=== PATIENT | male | born 1945 | race Caucasian/White ===

== ENCOUNTER 2021-02-01 17:09 | Emergency (ER) | payer OTHER, SELFPAY ==
--- NOTE | ~2021-02-01 | XR_ITS ---
EXAMINATION: XR HAND, RIGHT CLINICAL INFORMATION: Splinter to right palmar aspect COMPARISON: None TECHNIQUE: PA, lateral, and oblique views of the right hand. FINDINGS: There is normal alignment without acute fracture or dislocation. There is narrowing of the DIP and PIP joint spaces with associated hypertrophic change. There is narrowing of the radiocarpal and intercarpal joint spaces. There is narrowing, mild subluxation, and sclerosis at the first carpometacarpal joint and the first metacarpophalangeal joint. There is mild diffuse osteopenia. In the area as marked on the film, no radiopaque foreign body is visualized. The splinter as described in the clinical history a be too small for the resolution of the film. XR/XR hand RT 2V IMPRESSION: No acute bony abnormality of the right hand. Moderate osteoarthritis. No radiopaque foreign body is visualized.
[2021-02-01 17:31] VITALS: BP 155/64; PULSE 65; RESP 18; TEMP 36.3; O2SAT 99; BMI 31.3
--- NOTE | 2021-02-01 18:48 | ED_ITS ---
HPI - Extremity Problem General Chief complaint: Extremity Injury, Upper Stated complaint: splinter in palm of r hand Time Seen by Provider: 02/01/21 18:39 Source: patient Mode of arrival: ambulatory Limitations: no limitations History of Present Illness HPI Narrative: Patient diabetic had a pressure treated wood splinter in his right hand 3 days ago unable to remove all of it comes here now increased pain and swelling with redness going to the wrist no fever noted Related Data Previous Rx's Medication Instructions Recorded clindamycin HCl 300 mg capsule 300 mg PO QID #40 cap 02/01/21 mupirocin 2 % topical ointment 1 appl TOPICAL BID #15 g 02/01/21 Allergies Allergy/AdvReac Type Severity Reaction Status Date / Time Penicillins [PENICILLINS] Allergy Unknown UNKNOWN Verified 02/01/21 17:33 Review of Systems Review of Systems: Yes all other systems are reviewed and are negative [facility] Past Medical History Medical History Diabetes Hypertension Social History Social History Advance Directives: No Advance Directives Information Provided: Yes Physical Exam Vital Signs: Vital Signs: Last Vital Signs Temp 97.4 F 02/01/21 17:31 Pulse 65 02/01/21 17:31 Resp 18 02/01/21 17:31 BP 155/64 H 02/01/21 17:31 Pulse Ox 99 02/01/21 17:31 Body Mass Index 31.3 Extrem: Hand/finger images: 1. Transillumination positive for foreign body with surrounding erythema Procedures Foreign Body Removal Time Out Performed: yes Site: right and hand Description of foreign body: other (wood splinter) Technique: removal with forceps Confirmed by:: direct visualization Complications: none Discharge Plan Discharge Clinical Impression: Splinter Patient Disposition: Home, Self-Care Instructions: Soft Tissue Foreign Body (ED), Cellulitis (ED) Additional Instructions: Local care as advised Take antibiotic as prescribed Report to the ER/PCP if increased swelling/redness/pain Prescriptions: New clindamycin HCl 300 mg capsule 300 mg PO QID Qty: 40 RF: 0 mupirocin 2 % ointment 1 appl topical BID Qty: 15 RF: 0
[2021-02-01] MEDS: Lidocaine HCl 2 % MPF 5 ML VIAL INFILTRATI (19:05)
[2021-02-01] MEDS: Clindamycin HCL 300 MG CAPSULE PO (19:05)
== END 2021-02-01 19:46 | disposition home or self-care (01) ==
PROVIDERS: Emergency Provider Internal Medicine; PCP Internal Medicine
DX: S60.551A Superficial foreign body of right hand, initial encounter (principal); M79.641 Pain in right hand; W45.8XXA Other foreign body or object entering through skin, initial encounter; Y93.9 Activity, unspecified; Y92.9 Unspecified place or not applicable; Y99.9 Unspecified external cause status
CPT/HCPCS: 10120; 73120; 99283; 99284

== ENCOUNTER 2021-02-24 10:28 | Emergency (ER) | payer MEDICARE, SELFPAY ==
--- NOTE | 2021-02-24 | ECG_ITS ---
Test Reason : SHORTNESS OF BREATH Blood Pressure : / mmHG Vent. Rate : 085 BPM Atrial Rate : 085 BPM P-R Int : 290 ms QRS Dur : 114 ms QT Int : 390 ms P-R-T Axes : 064 037 080 degrees QTc Int : 464 ms Sinus rhythm with 1st degree A-V block Inferior infarct , age undetermined Intra-ventricular conduction delay Abnormal ECG No previous ECGs available Referred By: Fernando Leon Electronically Signed By:JOSE RAMSEY MD
--- NOTE | ~2021-02-24 | CT_ITS ---
EXAMINATION: CT ANGIOGRAM OF THE CHEST WITH AND WITHOUT CONTRAST (CT PULMONARY ANGIOGRAM FOR PE) CLINICAL INFORMATION: Reason for Exam ? pneumonia COMPARISON: Chest x-ray from earlier the same day TECHNIQUE: Prior to contrast administration, noncontrast localization images were obtained. Subsequently, multidetector volumetric imaging was performed from the thoracic inlet to below the diaphragms following the administration of 65 mL Omnipaque 350 intravenous contrast. No contrast reaction reported Sagittal, coronal, and MIP oblique sagittal reformatted images were obtained on the CT workstation, uploaded to PACS, and reviewed. This CT examination was performed using dose optimization techniques as appropriate, variously including the following: *Automated exposure control *Adjustment of mA and/or kV according to patient size (this includes techniques or standardized protocols for targeted exams where dose is matched to indication/reason for exam; i.e. extremities or head) *Use of iterative reconstruction technique Total exam dose-length product 349 mGy-cm FINDINGS: QUALITY OF STUDY/CONTRAST BOLUS: Satisfactory. PULMONARY ARTERIES: No central or segmental pulmonary emboli. THORACIC AORTA: No aneurysm or dissection. LUNG: There are bilateral peripheral groundglass attenuation infiltrates. These are greatest at the lung bases. Chest CT appearance is nonspecific but would be compatible with Covid infection. There are multiple solid left lower lobe nodules measuring 5 mm axial image 37, 4 mm axial image 38, 4 and 8 mm axial image 41 and 5 mm axial image 42 series 7. PLEURA: No pleural effusion or pneumothorax. There is mild right pleural thickening and pleural calcification. MEDIASTINUM: Post-CABG changes. Normal heart size. No pericardial effusion. There are small mediastinal and bilateral hilar lymph nodes. No enlarged hilar or mediastinal lymphadenopathy. No evidence of septal bowing or right heart strain. There is a small esophageal hernia. CHEST WALL/AXILLA: There are small bilateral axillary lymph nodes. No chest wall mass or enlarged lymph nodes are seen. OSSEOUS STRUCTURES: There are degenerative changes of the spine. There are old right-sided rib fractures. UPPER ABDOMEN: Unremarkable. No reflux of contrast into the hepatic veins to suggest elevated right heart pressures. CT/CT angio chest PE protocol IMPRESSION: No evidence of pulmonary embolism. Bilateral peripheral groundglass attenuation infiltrates. Chest CT appearance is nonspecific but would be compatible with Covid infection. Left lower lobe pulmonary nodules, largest measuring [address] follow-up in 6-12 months recommended. Post-CABG changes. Esophageal hernia. VTE:
--- NOTE | ~2021-02-24 | XR_ITS ---
EXAMINATION: XR CHEST CLINICAL INFORMATION: Chest pain COMPARISON: Previous chest x-ray September 2019 TECHNIQUE: Frontal view of the chest was obtained. FINDINGS: The cardiac and mediastinal contours are stable. There are post-CABG changes. There is question of peripheral infiltrate in the right mid and lower lung and at the left lung base. There is no pleural effusion or pneumothorax. There are old right rib fractures. There are degenerative changes of the spine. XR/XR chest 1V IMPRESSION: Question bilateral infiltrates, right greater than left.
[2021-02-24 10:41] VITALS: BP 108/54; PULSE 85; RESP 10; TEMP 36.7; O2SAT 95; BMI 31.0
[2021-02-24 11:09] LABS: MANUAL DIFF FLAG NO
[2021-02-24 11:11] LABS: Basophils Percent Auto 0.2 % (0-2); Eosinophils Absolute Auto 0.1 X10*3/uL (0.0-0.4); Eosinophils Percent Auto 0.5 % (0-4); Hematocrit 33.4 % (42.0-52.0); Hemoglobin 11.5 g/dl (14.0-18.0); Imm Gran Abs Auto 0.05 X10*3/uL (0.00-0.03); Imm Gran Pct Auto 0.5 % (0.0-0.4); Lymphocytes Absolute Auto 0.5 X10*3/uL (1.2-4.9); Lymphocytes Percent Auto 5.6 % (20-40); Mean Corpuscular HGB Conc 34.4 g/dl (31.0-36.0); Mean Corpuscular Hemoglobin 29.8 pg (27.0-33.0); Mean Corpuscular Volume 86.5 fL (80.0-98.0); Mean Platelet Volume 9.7 fL (9.4-12.4); Monocytes Absolute Auto 0.8 X10*3/uL (0.1-1.2); Monocytes Percent Auto 8.1 % (2-11); Neutrophils Absolute Auto 7.9 x10*3/uL (2.0-8.3); Neutrophils Percent Auto 85.1 % (45-73); Platelet Count 289 X10*3/uL (160-400); Red Blood Count 3.86 X10*6/uL (4.60-5.80); Red Cell Distribution Width 12.5 % (11.0-16.0); White Blood Count 9.3 X10*3/uL (4.8-10.8)
--- NOTE | 2021-02-24 11:29 | ED.GENADULT ---
HPI - General Adult General Chief complaint: Dyspnea Stated complaint: COUGH POS COVID Time Seen by Provider: 02/24/21 10:45 Source: patient Mode of arrival: ambulatory Limitations: no limitations History of Present Illness HPI narrative: This is a very pleasant 75 years old male presented to the emergency department complaining of cough or shortness of breath. He states that he has been Dequan's it with COVID a days ago denies any fever vomiting diarrhea. The patient has history of diabetes coronary artery disease Onset (ago): day(s) (8) Radiation: non-radiation Severity: moderate Pain Consistency: constant Relieving factors: none Exacerbating factors: none Related Data Previous Rx's Medication Instructions Recorded clindamycin HCl 300 mg capsule 300 mg PO QID #40 cap 02/01/21 mupirocin 2 % topical ointment 1 appl TOPICAL BID #15 g 02/01/21 prednisone 20 mg tablet 40 mg PO DAILY #10 tab 02/24/21 Allergies Allergy/AdvReac Type Severity Reaction Status Date / Time Penicillins [PENICILLINS] Allergy Unknown UNKNOWN Verified 02/01/21 17:33 Review of Systems Review of Systems: Yes all other systems are reviewed and are negative Constitutional: Constitutional: Reports lethargy and Reports malaise ENT: Reports system reviewed and no additional complaints, except as documented Cardiovascular: Cardiovascular: Reports no additional cardiovascular complaints, Denies chest pain, Denies chest pain with activity and Denies irregular heart rhythm Respiratory: Respiratory: Reports cough PMFSH Past Medical History Medical History COVID Diabetes Hypertension 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 Surgical History (Updated 02/24/21 @ 10:44 by Shorty Staton) History of heart artery stent Social History Social History Alcohol intake: never Smoked in Last 30 Days: No Use of substances other than those prescribed or required for medical reasons: No Advance Directives: Yes Advance Directives Information Provided: Yes Advance Directives on File: No Physical Exam Vital Signs: Vital Signs: Last Vital Signs Temp 98.1 F 02/24/21 10:41 Pulse 85 02/24/21 10:41 Resp 10 L 02/24/21 10:41 BP 108/54 L 02/24/21 10:41 Pulse Ox 95 02/24/21 10:41 Body Mass Index 31.0 Const: General: cooperative Nutritional Appearance: average body habitus Orientation/consciousness: patient oriented x3 HENMT: Head: Yes normal to inspection General nose exam: Normal external nose present Face and sinus: Yes normal facial exam Mouth: Normal oral and palatal mucosa present Throat: Yes posterior oropharynx normal Neck: Neck: Yes normal visual inspection and Yes full ROM Chest: Chest palpation & inspection: normal inspection of the chest Resp: Effort & Inspection: normal respiratory effort and able to speak in complete sentences Auscultation: clear to auscultation bilaterally Cardio: Jugular venous distension: no JVD Rate: regular rate GI: Inspection: Yes normal to inspection Palpation (GI): Soft to palpation, not firm, nontender and no guarding Skin: General skin exam: no rashes or lesions noted, elasticity normal and turgor normal Rashes: no rashes Neuro: General: patient oriented x3 Course Course Course Narrative: Patient was observed in the emergency department for more than 3 .5 h ; his oxygen saturation remained more than 94%. He is afebrile and nontoxic is not tachycardic is not tachypneic. He has COVID pneumonitis by chest x-ray and CT but his oxygenation is good. I think he could be discharged home, he has a pulse oximeter at home he will monitor his oxygen at home and return is less than visit 90 91% Reevaluation(s) Reevaluation #1: Sat on exertion after walking more than 94% Medical Decision Making Lab Data Result diagrams: 02/24/21 11:03 02/24/21 11:03 Labs: Lab Results 02/24/21 02/24/21 02/24/21 Range/Units 11:03 11:03 11:03 WBC 9.3 (4.8-10.8) X10*3/uL RBC 3.86 L (4.60-5.80) X10*6/uL Hgb 11.5 L (14.0-18.0) g/dl Hct 33.4 L (42.0-52.0) % MCV 86.5 (80.0-98.0) fL MCH 29.8 (27.0-33.0) pg MCHC 34.4 (31.0-36.0) g/dl RDW 12.5 (11.0-16.0) % Plt Count 289 (160-400) X10*3/uL MPV 9.7 (9.4-12.4) fL Immature Gran % (Auto) 0.5 H (0.0-0.4) % Neut % (Auto) 85.1 H (45-73) % Lymph % (Auto) 5.6 L (20-40) % [place] % (Auto) 8.1 (2-11) % Eos % (Auto) 0.5 (0-4) % Baso % (Auto) 0.2 (0-2) % Lymph # (Auto) 0.5 L (1.2-4.9) X10*3/uL [place] # (Auto) 0.8 (0.1-1.2) X10*3/uL Eos # (Auto) 0.1 (0.0-0.4) X10*3/uL Baso # (Auto) 0.0 (0.0-0.2) X10*3/uL Abs Immat Gran (auto) 0.05 H (0.00-0.03) X10*3/uL Absolute Neuts (auto) 7.9 (2.0-8.3) x10*3/uL Absolute Nucleated RBC 0.000 (0.0-0.012) X10*3/uL Nucleated RBC % (auto) 0.0 (0.0-0.2) /100WBC PT 14.0 H (9.9-13.0) SEC INR 1.2 H (0.9-1.1) APTT 34.7 (24.1-38.0) SEC Sodium 137 (135-145) mmol/L Potassium 4.8 (3.3-5.1) mmol/L Chloride 102 (96-108) mmol/L Carbon Dioxide 23 (22-29) mmol/L Anion Gap 17 (12-20) BUN 21 H (9-16) mg/dL Creatinine 1.04 (0.5-1.4) mg/dL Estim Creat Clear Calc 69.8 Estimated GFR > 60 Random Glucose 205 H (60-115) mg/dL Calcium 9.0 (8.4-10.2) mg/dL Total Bilirubin 0.6 (0.0-1.0) mg/dL AST 19 (5-37) U/L ALT 17 (0-40) U/L Alkaline Phosphatase 60 (39-117) U/L Total Protein 6.6 (6.5-8.0) g/dL Albumin 3.7 (3.5-5.0) g/dL Imaging Data Chest x-ray: Radiologist's impression: EXAMINATION: XR CHEST CLINICAL INFORMATION: Chest pain COMPARISON: Previous chest x-ray September 2019 TECHNIQUE: Frontal view of the chest was obtained. FINDINGS: The cardiac and mediastinal contours are stable. There are post-CABG changes. There is question of peripheral infiltrate in the right mid and lower lung and at the left lung base. There is no pleural effusion or pneumothorax. There are old right rib fractures. There are degenerative changes of the spine. XR/XR chest 1V IMPRESSION: Question bilateral infiltrates, right greater than left. ? Dictated By: Zoraida Walker MD Signed By: <Electronically s CT scan - chest: Radiologist's impression: LUNG: There are bilateral peripheral groundglass attenuation infiltrates. These are greatest at the lung bases. Chest CT appearance is nonspecific but would be compatible with Covid infection. There are multiple? solid left lower lobe nodules measuring 5 mm axial image 37, 4 mm axial image 38, 4 and 8 mm axial image 41 and 5 mm axial image 42 series 7. PLEURA: No pleural effusion or pneumothorax. There is mild right pleural thickening and pleural calcification. MEDIASTINUM: Post-CABG changes. Normal heart size. No pericardial effusion. There are small mediastinal and bilateral hilar lymph nodes. No enlarged hilar or mediastinal lymphadenopathy.? No evidence of septal bowing or right heart strain. There is a small esophageal hernia. CHEST WALL/AXILLA: There are small bilateral axillary lymph nodes. No chest wall mass or enlarged lymph nodes are seen. OSSEOUS STRUCTURES: There are degenerative changes of the spine. There are old right-sided rib fractures.? UPPER ABDOMEN: Unremarkable.? No reflux of contrast into the hepatic veins to suggest elevated right heart pressures. CT/CT angio chest PE protocol IMPRESSION: No evidence of pulmonary embolism. Bilateral peripheral groundglass attenuation infiltrates. Chest CT appearance is nonspecific but would be compatible with Covid infection. Left lower lobe pulmonary nodules, largest measuring [address] follow-up in 6-12 months recommended. Post-CABG changes. Esophageal hernia. ? VTE: ECG Data Attestation: I personally reviewed and interpreted this ECG as follows: Prior ECG tracings: available for review Pacemaker model: NSR Q 2,3,f,IVCD Discharge Plan Discharge Clinical Impression: Pneumonia due to COVID-19 virus Patient Disposition: Home, Self-Care Instructions: COVID-19 (Coronavirus Disease 2019) (ED) Additional Instructions: Follow-up with your primary care physician tomorrow take prednisone as directed return to the emergency department is oxygen dropped below 91%( you told us that you have an oxymeter at home) Prescriptions: New prednisone 20 mg tablet 40 mg PO DAILY Qty: 10 RF: 0 No Action clindamycin HCl 300 mg capsule 300 mg PO QID Qty: 40 RF: 0 mupirocin 2 % ointment 1 appl topical BID Qty: 15 RF: 0
[2021-02-24 11:36] LABS: Alanine Aminotransferase 17 U/L (0-40); Albumin Level 3.7 g/dL (3.5-5.0); Alkaline Phosphatase 60 U/L (39-117); Anion Gap 17 (12-20); Aspartate Amino Transferase 19 U/L (5-37); Bilirubin Total 0.6 mg/dL (0.0-1.0); Blood Urea Nitrogen 21 mg/dL (9-16); Carbon Dioxide 23 mmol/L (22-29); Chloride 102 mmol/L (96-108); Creatinine Clr Calc Pharmacy 69.8; Estimated Glomerular Filt Rate > 60; Glucose Random 205 mg/dL (60-115); Potassium 4.8 mmol/L (3.3-5.1); Sodium 137 mmol/L (135-145); Total Protein 6.6 g/dL (6.5-8.0)
--- NOTE | 2021-02-24 11:45 | PC.NURSE ---
ambulation o2 93-95% on room air
[2021-02-24 11:54] LABS: Partial Thromboplastin Time 34.7 SEC (24.1-38.0)
[2021-02-24] MEDS: 0.9 % Sodium Chloride 1,000 ML 999 ML IVCONT (11:58)
[2021-02-24 12:30] LABS: INTERNATIONAL NORM RATIO 1.2 (0.9-1.1)
[2021-02-24] MEDS: iohexoL 350 MG/ML 100 ML INFUS..BTL IV (12:44)
[2021-02-24] MEDS: predniSONE 20 MG TABLET 40 MG PO (14:48)
== END 2021-02-24 14:51 | disposition home or self-care (01) ==
PROVIDERS: Emergency Provider Emergency Medicine; PCP Internal Medicine
DX: U07.1 COVID-19 (principal); J12.82 Pneumonia due to coronavirus disease 2019; E11.9 Type 2 diabetes mellitus without complications; I10 Essential (primary) hypertension
CPT/HCPCS: 36415; 71045; 71275; 80053; 85025; 85610; 85730; 93005; 96360; 99284; Q9967

== ENCOUNTER 2025-03-23 11:07 | Emergency (ER) | payer MEDICARE, SELFPAY ==
[2025-03-23 11:14] VITALS: BP 161/74; PULSE 71; RESP 18; O2SAT 97; BMI 26.5
--- NOTE | 2025-03-23 11:14 | ED_ITS ---
HPI - Wound/Laceration General Chief Complaint: Wound/Laceration Stated Complaint: facial laceration Time Seen by Provider: 03/23/25 11:51 Source: patient Mode of arrival: ambulatory Limitations: no limitations History of Present Illness ED Provider: Tierra Ojeda PA-C HPI narrative: Patient is a 79 year old male with a history of HTN, DM, and anti-coagulation use presenting to the emergency department today with right forehead bleeding. Patient states that he rubbed his right forehead and a previous scab fell off and is now bleeding and won't stop. Patient denies any other complaints at this time. Related Data Previous Rx's ?Medication ?Instructions ?Recorded clindamycin HCl 300 mg capsule 300 mg PO QID #40 caps 02/01/21 mupirocin 2 % topical ointment 1 appl topical BID #15 grams 02/01/21 prednisone 20 mg tablet 40 mg (2 x 20 mg) PO DAILY # 10 tabs 02/24/21 Allergies Allergy/AdvReac Type Severity Reaction Status Date / Time Penicillins (PENICILLINS) Allergy Unknown UNKNOWN Verified 03/23/25 11:15 Review of Systems 2 Constitutional: Constitutional: Reports as per HPI Eyes: Eyes: Reports as per HPI ENT: Reports as per HPI Cardiovascular: Cardiovascular: Reports as per HPI Respiratory: Respiratory: Reports as per HPI Gastrointestinal: Gastrointestinal: Reports as per HPI Genitourinary: Genitourinary: Reports as per HPI Musculoskeletal: Musculoskeletal: Reports as per HPI Integumentary/Breasts: Skin/Breast: Reports as per HPI Neurologic: Reports as per HPI Psychiatric: Psychiatric: Reports as per HPI Endocrine: Endocrine: Reports as per HPI Hematologic/Lymphatic: Hematologic/Lymphatic: Reports as per HPI Allergic/Immunologic: Allergic/Immunologic: Reports as per HPI PMF Past Medical History Attestation statement: The following information was validated with the patient. 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 COVID Hypertension Diabetes Surgical History History of heart artery stent Social History Social History Alcohol intake: never Advance Directives: No Advance Directives Information Provided: No Physical Exam 2 Vital Signs: Vital Signs: Last Vital Signs Temp 0 F L 03/23/25 12:16 Pulse 71 03/23/25 12:16 Resp 18 03/23/25 12:16 BP 161/74 H 03/23/25 12:16 Pulse Ox 97 03/23/25 12:16 O2 Del Method Room Air 03/23/25 12:16 BMI result Body Mass Index 26.5 Const: General: cooperative, no acute distress, alert and awake Nutritional Appearance: well nourished Orientation/consciousness: patient oriented x3 HEENT: Other: Ears: hearing grossly normal bilaterally and external ears normal G eneral nose exam: Normal external nose present, no nasal discharge noted and no epistaxis Mouth: Normal oral and palatal mucosa present, no drooling and no muffled voice Eyes: General: appearance normal, both eyes and all related structures P eriorbital: periorbital findings normal Eyelids: Yes eyelids normal C onjunctivae: conjunctivae normal Pupils: Equal, round and reactive pupils present EOM: EOMs intact bilaterally Neck: Neck: Yes normal visual inspection and Yes full ROM Resp: Effort & Inspection: normal respiratory effort and able to speak in complete sentences Neuro: General: patient oriented x3, moves all extremities and CN's II-XI intact bilaterally Cranial nerves: Yes Equal, round and reactive pupils present Cognition (Neuro): normal cognition Extrem: General: Yes normal to inspection, Yes full ROM and Yes capillary refill normal Psych: Appearance: grossly normal Mental Status: mental status grossly normal Affect: normal affect Attitude: cooperative Thought process: N ormal thought process present Thought content: Normal thought content present Insight: Good insight present (Psych) Course Course Course Narrative: This is an RME: Additional HPI, ROS, PE not included below will be deferred to primary provider. RME assessment and note performed by: Destinee Pelaez PA-C This is [id number]-male, with a hx of a fib on eliquis, who presents to the ED with concerns of facial laceration. Patient reports that he rubbed his face and this caused him to have a tiny laceration to his face. unsure last tdap. Plan: wound repair Medications Administered Discontinued Medications Generic Name Dose Route Start Last Admin Trade Name Freq PRN Reason Stop Dose Admin Lidocaine/Epinephrine 5 ml 03/23/25 11:47 03/23/25 12:15 Lidocaine Hcl 1%/Epi 1:100,000 20 Ml Vial INFILTRATI 03/23/25 11:48 5 ml ONCE ONE Administration Medical Decision Making Medical Decision Making MDM Narrative: Patient is a 79 year old male with a history of HTN, DM, and anti-coagulation use presenting to the emergency department today with right forehead bleeding. Patient's physical exam was as noted in the physical exam portion of this note. Patient had a very small area on the right forehead that was bleeding. I explained my physical exam findings to the patient. I answered all questions asked by the patient. Patient's laceration was repaired with a figure [address] Murillo, without incident. Patient's bleeding from the wound stopped and was well controlled s/p suture. I stressed the importance of the patient taking his medication as directed (either prescribed or as the over the counter packaging recommends). I stressed the importance of the patient following up with his primary care provider. I stressed the importance of the patient returning to the emergency department immediately if his symptoms were to worsen or if he were to develop any dizziness, shortness of breath, difficulty breathing, chest pain, blurry vision, loss of vision, nausea, vomiting, abdominal pain, fever, chills, back pain, or any other complaints. Patient verbalized agreement and understanding with this treatment plan and discharge. Differential Diagnosis Differential Diagnoses: The differential diagnosis associated with the presentation includes Laceration Forehead injury Abrasion Avulsion of skin Admission/Observation Consideration of admission/observation: Escalation of care including admission/observation considered Patient would have been admitted to the hospital had his clinical presentation warranted hospital admission. Procedures Laceration Laceration 1: Site: face Side (If applicable): right Size (cm): 0.5 Description: linear Depth: simple, single layer Local Anesthetic: lidocaine 1% and with epi Amount of anesthesia used (mL): 2 Skin layer closed with: nylon Size (cm): 5-0 Number of sutures: 1 Technique: other (Figure 8) Discharge Plan Discharge Clinical Impression: Laceration Patient Disposition: Home, Self-Care Instructions: Care For Your Stitches (DC) Additional Instructions: Your laceration was repaired with (1) sutures. It is normal for the wound to ooze blood over the next few hours. IF the bleeding becomes excessive or you become concerned, please do not hesitate to return to the emergency department. Have these sutures removed in 7-10 days. They can be removed by your primary care provider, at any urgent care by their provider, or at any emergency department by any of their providers. Do NOT soak the affected area. Avoid ALL bodies of water - this including pools, lakes, doyle, oceans, streams, puddles, etc. until your sutures have been removed and the wound has F ULLY healed (no open areas, no scabbing). IF you are concerned about scarring, once the sutures have been removed and the scabbing has fallen away - apply sunscreen to the area every day for 1 full year . IF you are prescribed home medications and/or you are taking over the counter medications at home - it is very important you continue to do so as prescribed / directed unless told otherwise by a healthcare provider. Follow up with your primary care provider. Do your best to stay well hydrated and rest. Return to the emergency department immediately if your symptoms worsen or if you develop any numbness, tingling, dizziness, shortness of breath, difficulty breathing, chest pain, blurry vision, loss of vision, nausea, vomiting, abdominal pain, fever, chills, back pain, or any other complaints. Please see the information below about our Patient Portal. If you are not yet enrolled in the [facility] Patient Portal, you will receive an enrollment email invitation following your visit to any [facility] setting. You may also self-enroll in the Patient Portal by visiting our website: [email or web address] The following information is required to access the Patient Portal: - Your [facility] Medical Record Number - Your personal home email address (must match what is in your electronic medical record, Registration staff can assist with this) - Name - Date of Capabilities of the Patient Portal: - Message some providers - View upcoming appointments - Access your health summary, medical history, and visit history - View current conditions and allergies - View procedure and lab results - View your medications, including guidelines, side effects, and precautions - Complete pre-appointment questionnaires requested by your provider - Ready summary reports of your office visits and procedures To access the Patient Portal Mobile Greg, follow these directions: - Search [employer] Mobile in the Greg Store or Google Play Store - Download the Greg - Search for [facility] - Enter your login/password Prescriptions: No Action prednisone 20 mg tablet 40 mg PO DAILY Qty: 10 0RF clindamycin HCl 300 mg capsule 300 mg PO QID Qty: 40 0RF mupirocin 2 % ointment 1 appl topical BID Qty: 15 0RF Referrals: Buck Espinal MD [Primary Care Provider, Internal Medicine] Interventions: ED Discharge Assessment Last Done: 03/23/25 12:16 Discharge Date/Time: 03/23/25 12:16 Print Language: Togolese
[2025-03-23] MEDS: Lidocaine HCl 1%/Epi 1:100,000 20 ML VIAL 5 ML INFILTRATI (12:15)
[2025-03-23 12:16] VITALS: BP 161/74; PULSE 71; RESP 18; TEMP -17.7; TEMP 0; O2SAT 97
== END 2025-03-23 12:16 | disposition home or self-care (01) ==
PROVIDERS: Emergency Provider Student in an Organized Health Care Education/Training Program; PCP Internal Medicine
DX: S01.81XA Laceration without foreign body of other part of head, initial encounter (principal); I10 Essential (primary) hypertension; E11.9 Type 2 diabetes mellitus without complications; X58.XXXA Exposure to other specified factors, initial encounter; Y93.9 Activity, unspecified; Y92.9 Unspecified place or not applicable; Y99.8 Other external cause status; Z79.899 Other long term (current) drug therapy; Z79.01 Long term (current) use of anticoagulants
CPT/HCPCS: 12011; 99282; 99284; J2004